=== PATIENT | female | born 1955 | race Caucasian/White ===

== ENCOUNTER 2021-04-01 12:39 | Outpatient (CLI) | payer MEDICARE ==
[2021-04-02 02:13] LABS: SARS-CoV-2 PCR by NAA Not Detected (NotDetected)
== END 2021-04-01 12:40 | disposition home or self-care (01) ==
LOC: LABBT 12:39
PROVIDERS: ATTEND Otolaryngology Plastic Surgery within the Head & Neck
DX: Z01.812 Encounter for preprocedural laboratory examination (principal); E04.1 Nontoxic single thyroid nodule; Z20.822 Contact with and (suspected) exposure to COVID-19
CPT/HCPCS: U0003; U0005; 87635

== ENCOUNTER 2021-04-04 11:06 | Outpatient (CLI) | payer MEDICARE | END 2021-04-04 11:07 | disposition home or self-care (01) | PROVIDERS: ATTEND Otolaryngology Plastic Surgery within the Head & Neck | DX: I69.191 Dysphagia following nontraumatic intracerebral hemorrhage (principal); I69.891 Dysphagia following other cerebrovascular disease; R13.13 Dysphagia, pharyngeal phase; R13.14 Dysphagia, pharyngoesophageal phase; R63.3 Feeding difficulties; R06.2 Wheezing; R05 Cough; R13.11 Dysphagia, oral phase; Z98.890 Other specified postprocedural states; Z98.1 Arthrodesis status | CPT/HCPCS: 74230 ==